=== PATIENT | female | born 1945 | race Caucasian/White ===

== ENCOUNTER 2016-12-09 10:39 | Outpatient (CLI) | payer MEDICARE, OTHER ==
[2016-12-09 11:03] LABS: BASOPHILS % 0.6 (0.0-1.5); EOSINOPHILS % 2.6 % (0.0-6.8); MEAN CORPUSCULAR HEMOGLOBIN 28.3 pg (28.0-34.0); MEAN CORPUSCULAR VOLUME 87.2 fl (80.0-100.0); NEUTROPHILS # 4.5 # k/uL (1.4-7.7)
[2016-12-09 11:04] LABS: APPEARANCE,URINE Clear (CLEAR); COLOR,URINE Yellow (YELLOW); OCCULT BLOOD,URINE Negative (NEGATIVE); UROBILINOGEN URINE 0.2 Eu (0.2-1.0)
[2016-12-09 11:27] LABS: eGFR (African) > 60; eGFR (Non-African) > 60
== END 2016-12-09 10:40 ==
LOC: LAB 10:39
PROVIDERS: ATTEND Nurse Practitioner Family
DX: R78.2 Finding of cocaine in blood (principal); I10 Essential (primary) hypertension
CPT/HCPCS: 36415; 80053; 80061; 81002; 85025

== ENCOUNTER 2017-01-14 10:28 | Outpatient (CLI) | payer MEDICARE, OTHER ==
[2017-01-14 10:58] LABS: BASOPHILS % 0.9 (0.0-1.5); MEAN CORPUSCULAR HEMOGLOBIN 28.2 pg (28.0-34.0); MEAN CORPUSCULAR VOLUME 87.8 fl (80.0-100.0); MONOCYTES % 3.9 % (0.0-11.0); NEUTROPHILS # 3.5 # k/uL (1.4-7.7)
[2017-01-14 11:16] LABS: eGFR (African) > 60; eGFR (Non-African) > 60
--- NOTE | 2017-01-14 15:54 | Diagnostic Imaging Report ---
STARLA KLEIN [facility] [id number] [facility].[address] [id number] Report Submission Date: Jan 14, 2017 3:05:35 PM CDT Patient Study Name: DEE ANNA Date: Jan 14, 2017 10:51:36 AM CDT Modality Type: CR Gender: F Description: CHEST : 49 Institution: [facility] Physician: STARLA KLEIN Examination: PA and lateral chest. History: Evaluate lung gayle. Findings: PA lateral chest demonstrate a normal cardiac and mediastinal silhouette. No focal infiltrate. No effusion. Right midlung granuloma. No blunting of the costophrenic margins. Osseous structures are appropriate for age. Impression: No acute process. Electronically signed on Jan 14, 2017 3:05:35 PM CDT by: Junito MENDEZ
--- NOTE | 2017-01-14 15:55 | Diagnostic Imaging Report ---
STARLA KLEIN [id number] [facility].[address] [id number] Report Submission Date: Jan 14, 2017 3:07:47 PM CDT Patient Study Name: DEE ANNA Date: Jan 14, 2017 10:58:41 AM CDT Modality Type: CR Gender: F Description: SINUS : 49 Institution: Physician: STARLA KLEIN Examination: CT sinus History: Sinus pressure Comparison exams: None available Findings: Inferior margin of the right maxillary sinus inwardly indented suggesting prior injury versus congenital abnormality. No evidence for sinus opacification. Dental hardware. Impression: No sinus opacification by plain film sensitivity. Electronically signed on Jan 14, 2017 3:07:47 PM CDT by: Junito MENDEZ
== END 2017-01-14 10:30 ==
LOC: LAB 10:28
PROVIDERS: ATTEND Nurse Practitioner Family
DX: R53.82 Chronic fatigue, unspecified (principal)
CPT/HCPCS: 36415; 70220; 71020; 80053; 82607; 84443; 85025; 86618; 86666; 86757

== ENCOUNTER 2017-07-06 11:56 | Outpatient (CLI) | payer MEDICARE, OTHER ==
[2017-07-06 12:22] LABS: BASOPHILS % 0.8 (0.0-1.5); MEAN CORPUSCULAR HEMOGLOBIN 28.6 pg (28.0-34.0); MEAN CORPUSCULAR VOLUME 86.5 fl (80.0-100.0); MONOCYTES % 3.9 % (0.0-11.0); NEUTROPHILS # 3.3 # k/uL (1.4-7.7)
[2017-07-06 12:45] LABS: eGFR (African) > 60; eGFR (Non-African) > 60
== END 2017-07-06 11:57 ==
LOC: LAB 11:56
PROVIDERS: ATTEND Nurse Practitioner Family
DX: I10 Essential (primary) hypertension (principal); E78.4 Other hyperlipidemia
CPT/HCPCS: 36415; 80053; 80061; 85025

== ENCOUNTER 2018-07-14 10:25 | Outpatient (CLI) | payer MEDICARE, OTHER ==
[2018-07-14 11:56] LABS: eGFR (Non-African) > 60
[2018-07-14 12:10] LABS: BASOPHILS % 0.3 (0.0-1.5); EOSINOPHILS % 2.4 % (0.0-6.8); MEAN CORPUSCULAR HEMOGLOBIN 27.4 pg (28.0-34.0); NEUTROPHILS # 3.3 # k/uL (1.4-7.7)
== END 2018-07-14 14:21 ==
LOC: LAB 10:25
PROVIDERS: ATTEND Nurse Practitioner Family
DX: I10 Essential (primary) hypertension (principal); E78.2 Mixed hyperlipidemia; Z00.00 Encounter for general adult medical examination without abnormal findings
CPT/HCPCS: 36415; 80053; 80061; 85025; 86803